=== PATIENT | female | born 1990 ===

== ENCOUNTER 2020-11-14 13:15 | Inpatient (IN) | payer OTHER ==
[~2020-11-14] VITALS: Ht 165.1 cm; Wt 78.5 kg
[2020-11-27] MEDS ORDERED: PRENATAL + DHA1 EAC1 PO (08:41)
== END 2020-11-28 10:25 | disposition home or self-care (01) | DRG 807 ==
LOC: OB/GYN 11-21 13:15 → LDR 11-26 08:42 → SURG-SUITE 11-26 13:43
PROVIDERS: ADMIT Obstetrics & Gynecology Maternal & Fetal Medicine; ATTEND Obstetrics & Gynecology Maternal & Fetal Medicine
PROC: 10E0XZZ Delivery of Products of Conception, External Approach (ICD-10-PCS; principal; 2020-11-26)
PROC: 10907ZC Drainage of Amniotic Fluid, Therapeutic from Products of Conception, Via Natural or Artificial Opening (ICD-10-PCS; 2020-11-26)
PROC: 4A1HXFZ Monitoring of Products of Conception, Cardiac Rhythm, External Approach (ICD-10-PCS; 2020-11-26)
DX: O80 Encounter for full-term uncomplicated delivery (principal); Z37.0 Single live birth; Z3A.39 39 weeks gestation of pregnancy; Z20.822 Contact with and (suspected) exposure to COVID-19